=== PATIENT | female | born 1935 | race Caucasian/White ===

== ENCOUNTER 2016-12-24 01:15 | Inpatient (IN) | payer OTHER ==
[~2016-12-24] VITALS: Ht 170.2 cm; Wt 58.2 kg
--- NOTE | ~2016-12-24 | HC ---
[facility] [place] [address] CONSULTATION Name: BHAVESH PEÑA Room #: 205-P ADM IN M.R.#: [id number] Admission: 12/24/16 Attend Phys: Yessy Cabello MD Discharge: Date of : 35 Report #: [id number] THIS REPORT FOR: //name// CC: Chevy Cabello DATE OF CONSULTATION: 12/29/2016. ATTENDING PHYSICIAN: Dr. Yessy Cabello. REASON FOR CONSULTATION: Possible sepsis -- urinary tract infection. HISTORY OF PRESENT ILLNESS: The patient is an 81-year-old white woman initially hospitalized on 12/24/2016 with history of abdominal pain. She is found to have possible small-bowel obstruction secondary to adhesions. She undergoes surgical intervention by Dr. Chevy Rider 12/2015 consisting of release of small-bowel obstruction secondary to adhesions and segmental small bowel resection. The patient has history of colon cancer many years ago and there was no evidence of tumor in the abdominal cavity. PAST MEDICAL HISTORY: 1. Colon cancer, no evidence of metastasis in the past. 2. DVT lower extremities. 3. Previous hospitalization and phlebotomy in the past for possible hemochromatosis. 4. Hypertension. 5. Thyroid disease. 6. Leg fracture. 7. Coronary artery calcification by CT scan. 8. Anemia. DRUG ALLERGIES: None listed. MEDICATIONS: The patient is on treatment with cefoxitin 1 gram IV every 6 hours. She is also on Tylenol, metoprolol, haloperidol p.r.n., hydralazine p.r.n., ondansetron p.r.n. and is on intravenous fluids. SOCIAL HISTORY: See H and P. FAMILY HISTORY: See H and P. REVIEW OF SYSTEMS: The patient is rather weak and somnolent at present complaining of only abdominal pain as one might expect. [facility] [address] [place] [address] CONSULTATION Name: BHAVESH PEÑA Room #: 205-P [facility] IN [facility]#: [id number] Admission: 12/24/16 Attend Phys: Yessy Cabello MD Discharge: Date of : 35 Report #: [id number] PHYSICAL EXAMINATION: GENERAL: A well-developed woman, not toxic looking. VITAL SIGNS: Temperature maximum 99.9, pulse 97, respirations 14, blood pressure 124/74, O2 saturation 100% on room air. HEENMT: Head normocephalic, atraumatic. Pupils reactive. Mouth: Moist mucous membrane. No thrush. NECK: Supple, no thyromegaly. LUNGS: Decreased breath sounds at bases, few crackles, right base. HEART: S1, S2. No gallop. ABDOMEN: Revealed a Prevena dressing in place. This is not removed. Abdomen is tender as one might expect. Bowel sounds decreased. GENITALIA AND RECTAL: Deferred. There is a Vega catheter in place. EXTREMITIES: No clubbing, cyanosis. There is a left arm PICC. NEUROLOGIC: Grossly within normal limits. LABORATORY DATA: Sodium 142, potassium 3.7, BUN 24, creatinine 1, glucose 116, albumin 2.3 g/dL. WBC 11.4, hemoglobin 8.8, platelets 183,000. White blood cell count revealed 84% segmented neutrophils. Urinalysis revealed bacteriuria and some microscopic pyuria. The ABGs yesterday revealed pH 7.36, pCO2 of 36, pO2 102, bicarbonate low at 20.5. Lactate normal. The set of gases is unknown FIO2. MICROBIOLOGY DATA: Urine culture revealed greater than 100,000 colonies of Citrobacter freundii and Klebsiella oxytoca, organisms sensitive to most antibiotics. Radiology evaluation, a CT scan of chest PE protocol yesterday revealed cardiomegaly, coronary artery calcification, no filling defects of the pulmonary arteries to suggest emboli. 2.1 cm nodule right thyroid lobe. Bibasilar atelectasis. ASSESSMENT: 1. Status post exploratory laparotomy, lysis of adhesions, segmental small bowel resection by Dr. Chevy Rider 11/27/2016. 2. History of colon cancer. 3. Possible hemochromatosis. 4. Anemia. 5. Bacteriuria versus urinary tract infection. 6. Doubt sepsis. 7. History thrombectomy, remote. 8. Coronary artery disease, coronary artery calcifications, cardiomegaly and atrial fibrillation. SUGGESTIONS: At present, the patient obviously not septic and doing quite well. I recommend few days of meropenem 500 mg IV every 8 hours and discontinue cefoxitin. [address] [address] CONSULTATION Name: BHAVESH PEÑA Mikal Room #: 205-P ADM IN M.R.#: [id number] Admission: 12/24/16 Attend Phys: Yessy Cabello MD Discharge: Date of : 35 Report #: [id number] Cabello, thank you for requesting my suggestions in the care of your patient. <ELECTRONICALLY SIGNED> By: Cy Beal MD 12/30/16 1120 0921 1215 Cy Beal MD /nt
--- NOTE | ~2016-12-24 | H ---
[facility] [place] [address] HISTORY AND PHYSICAL Name: BHAVESH PEÑA Room #: 243-P ADM IN M.R.#: [id number] Admission: 12/24/16 Attend Phys: Yessy Cabello MD Discharge: Date of : 35 Report #: [id number] THIS REPORT FOR: //name// CC: Ricky Becker ATTENDING PHYSICIAN: Michael Becker M.D. PRIMARY CARE PHYSICIAN: Dr. Clint Sol. CHIEF COMPLAINT: Abdominal pain. HISTORY OF PRESENT ILLNESS: The patient is an 81-year-old female who ate breakfast this morning and shortly after eating, she developed sudden onset abdominal pain. The pain is mostly in her mid abdomen. It did not radiate. She said the pain was sharp and stabbing. The pain persisted throughout the day, so she ended up going to the ER at [facility]. She did have associated nausea and vomiting. She has not had any diarrhea. Her last bowel movement was 2 days ago. She has not been passing any flatus. She does have a history of colon cancer which was treated over 10 years ago with a colon resection followed by chemo and radiation. She has been told that she is in remission. She thinks she had a colonoscopy within the last 5 years that was normal. After evaluation at [facility], she was found to have a small bowel obstruction. They did not have a surgeon available this weekend, so she was transferred to [facility] as a direct admission. She is not in any acute distress and states her pain and nausea are much better after pain medications. She has not required an NG. PAST MEDICAL HISTORY: Hyperthyroidism, colon cancer, hemochromatosis, hypertension and DVT. PAST SURGICAL HISTORY: Bowel restriction and left wrist repair. ALLERGIES: None. HOME MEDICATIONS: Megace 40 mg b.i.d., Eliquis 5 mg p.o. b.i.d., metoprolol 50 mg b.i.d., amlodipine 5 mg daily, aspirin 81 mg daily, Tylenol 325 mg q.4 hours p.r.n., Remeron 15 mg p.o. daily, lactobacillus 2 capsules daily, Senna 2 tabs p.o. daily constipation and methimazole 15 mg p.o. daily. SOCIAL HISTORY: The patient is a never smoker, denies any alcohol or drug use. She lives at home with her family including her son and spouse. FAMILY HISTORY: Her mother had heart problems who of old age at the age of 80 and her father at the age of 52 from a motor vehicle accident. REVIEW OF SYSTEMS: The patient does have a history of hemochromatosis in which she has occasional phlebotomy done for iron overload; she has not had this done [address] [address] HISTORY AND PHYSICAL Name: BHAVESH PEÑA Room #: 243-P [facility] IN M.R.#: [id number] Admission: 12/24/16 Attend Phys: Yessy Cabello MD Discharge: Date of : 35 Report #: [id number] recently. All other 12-point review of systems was reviewed with the patient, and otherwise negative unless stated in the HPI. PHYSICAL EXAMINATION: GENERAL: The patient is an alert female in no acute distress. VITAL SIGNS: Temperature is 36.8, heart rate 91, respirations 18, blood pressure is 144/83 and oxygen 99% on room air. HEENT: PERRLA. Sclerae are nonicteric. Oral mucosa is pink and moist. NECK: Supple, no JVD noted. CARDIOVASCULAR: Normal S1 and S2. No murmurs, rubs or gallops. RESPIRATORY: Breath sounds are clear bilaterally, diminished in both bases. Breathing is nonlabored. ABDOMEN: Round and soft. It is somewhat distended. She is tender across the mid abdomen. Bowel sounds are rare. VASCULAR: No edema noted. Pedal pulses are 2+. NEUROLOGIC: The patient is alert and oriented x 3. Speech is clear. She is moving all extremities equally. No focal neuro deficits noted. LABORATORY AND DIAGNOSTIC DATA: WBC is 16.3, hemoglobin 9.0 and platelets 208. Sodium 143, potassium 4.1, BUN 34, creatinine 1.1 and glucose 164. LFTs are within normal limits. Lipase 641. Lactate is 1.5. UA showed 2+ ketones, 3+ blood, negative nitrite and trace leukocyte esterase, few wbc's. CT of the abdomen showed dilated small bowel loops consistent with a small bowel obstruction. There is suggestion of intraluminal mass within the small bowel loop. ASSESSMENT AND PLAN: 1. Small bowel obstruction. This may be due to an intraluminal mass causing obstruction. She does have a history of colon cancer, this may be recurrent carcinoma; we will consult surgery. For now, keep her n.p.o., continue IV fluids, antiemetics and pain control. 2. Hyperthyroidism, continue home medications. 3. Hypertension. Blood pressure is stable, continue home medications. 4. History of a deep venous thrombosis. Continue with Eliquis. If surgery is indicated, this will need to be held. 5. Mild pancreatitis. Etiology for this is not clear. We will keep her n.p.o. due to small bowel obstruction and then repeat lipase in the morning after intravenous fluids. 6. Deep venous thrombosis prophylaxis, place SCDs. [address] [address] HISTORY AND PHYSICAL Name: BHAVESH PEÑA Room #: [facility] IN [facility].#: [id number] Admission: 12/24/16 Attend Phys: Yessy Cabello MD Discharge: Date of : 35 Report #: [id number] We will continue to follow the patient closely throughout the hospitalization and make changes based on clinical status. <ELECTRONICALLY SIGNED> By: GARTH Sims 12/29/16 0109 0703 0934 GARTH Sims /nt
--- NOTE | ~2016-12-24 | EKG ---
[address] [address] ELECTROCARDIOGRAM REPORT Name: BHAVESH PEÑA Room #: 444-P ADM IN .R.#: [id number] Admission: 12/24/16 Attend Phys: Yessy Cabello MD Discharge: Date of : 35 Report #: [id number] THIS REPORT FOR: //name// [facility] Test Date: 2016-12-28 Test Time: 02:06:47 Pat Name: BHAVESH PEÑA Department: Room: 444 Gender: F Science Consultant: . : 1935 Requested By: Regina Mota Order Number: [id number] MD: Willian Beal Measurements Intervals [place] Rate: 131 P: [place]: QRS: 39 QRSD: 78 T: 223 QT: 259 QTc: 383 Interpretive Statements Atrial fibrillation Artifact in lead(s) III,aVL,aVF,V1,V2,V5,V6 and baseline wander in lead(s) V3 Compared to ECG 12/25/2016 07:56:29 Electronically Signed On 12-28-2016 9:44:17 CDT by Willian Beal [email or web address] <ELECTRONICALLY SIGNED> By: Willian Beal MD 12/28/16 0944 0206 Willian Beal MD /EPI
--- NOTE | ~2016-12-24 | HC ---
[facility] [address] [place] [address] CONSULTATION Name: BHAVESH PEÑA Mikal Room #: 205-P [facility] IN ..#: [id number] Admission: 12/24/16 Attend Phys: Yessy Cabello MD Discharge: 01/04/17 Date of : 35 Report #: [id number] THIS REPORT FOR: //name// CC: Ricky Cabello HISTORY OF PRESENT ILLNESS: The patient is an 81-year-old white female originally admitted to [facility] with abdominal pain. She was transferred to [facility]. Diagnosis was small bowel obstruction. She was noted to have hypertension and mild pancreatitis. She ended up undergoing exploratory laparotomy with small bowel resections and lysis of adhesions. She was noted to have problems with confusion and has been diagnosed with an encephalopathy. She has a polymicrobial urinary tract infection with rapid atrial fibrillation and has had ileus. We are seeing her in rehabilitation medicine consultation. PAST MEDICAL HISTORY: Includes hyperthyroidism, colon cancer with prior resection, history of left wrist repair, hypertension, DVT, hemochromatosis. PAST SURGICAL HISTORY: Includes bowel resection, left wrist repair after a fracture, right femoral thrombectomy. ALLERGIES: No known drug allergies. MEDICATIONS: Please see the full medication listing. SOCIAL HISTORY: She lives in a house with her spouse. Does not utilize any gait aids. There is one step in. [place], [place]. There are children that are involved. FAMILY HISTORY: Mother at age 80 apparently of "old age". REVIEW OF SYSTEMS: No current complaints of chest pain, shortness of breath or abdominal discomfort. No focal extremity pain complaints. Did not complain of any headache. PHYSICAL EXAMINATION: GENERAL: She is an 81-year-old white female in no obvious distress. VITAL SIGNS: Last recorded temperature is 98.3, pulse 86, respirations 20, blood pressure 150/98. GENERAL: The patient is alert. She is pleasant. HEENT: Appeared to be benign. NEUROLOGIC: Cranial nerves are grossly intact. Facies are symmetric. She was noted to have some latency to her responses. She knew self, and place and date of , but does not know the year and the month. She has functional range of motion of both upper extremities with strength grade 4-/5. DTRs are trace to 1. [address] [address] CONSULTATION Name: BHAVESH PEÑA Room #: [address] [place] [address] [place] ..#: [id number] Admission: 12/24/16 Attend Phys: Yessy Cabello MD Discharge: 01/04/17 Date of : 35 Report #: [id number] Midline abdominal incision is dressed. Lower extremities, no focal calf swelling, functional range of motion strength is a grade 4 to 4-/5. DTRs are trace to 1. She has been sit to stand contact guard assistance and has ambulated 40 feet contact guard with a front-wheeled walker. ASSESSMENT: An 81-year-old white female with the following problem list: 1. Encephalopathy. Neurology is seeing her. 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 There is a question of some baseline dementia per Neurology. 2. Small-bowel obstruction, status post small bowel resection, lysis of adhesions, 12/27/2016. 3. Polymicrobial urinary tract infection with sepsis. 4. Rapid atrial fibrillation, now sinus rhythm. 5. Hyperthyroidism. 6. Hemochromatosis. PLAN: Therapies are continuing to work with her. We will need to see how she progresses during her therapies and see what her current functional status is. She may warrant a short acute in-hospital inpatient rehabilitation stay. We will follow along with you. Occupational therapy orders will be added. Thank you very much. <ELECTRONICALLY SIGNED> By: Mikael Malik MD 01/06/17 1551 1047 1302 Mikael Malik MD /nt
--- NOTE | ~2016-12-24 | O ---
[facility] [place] [address] OPERATIVE REPORT Name: BHAVESH PEÑA Room #: 205-P ADM IN M.R.#: [id number] Admission: 12/24/16 Attend Phys: Yessy Cabello MD Discharge: Date of : 35 Report #: [id number] THIS REPORT FOR: //name// CC: Ricky Cabello DATE OF SERVICE: 12/27/2016 PREOPERATIVE DIAGNOSIS: Partial small-bowel obstruction and possible neoplasm of the small bowel. POSTOPERATIVE DIAGNOSIS: Small-bowel obstruction secondary to adhesions. No evidence of neoplasm or small bowel. PROCEDURE: Diagnostic laparoscopy with conversion to open exploratory laparotomy. Lysis of dense adhesions for 59 minutes, small bowel resection and entero-entero anastomosis. Application of Prevena negative wound suction device. SURGEON: Chevy Rider MD PLUG MAKER: Jennie Mac APRN. INDICATIONS: An 81-year-old lady who presented with 48 hours of gastrointestinal cramping, abdominal pain with distention and nausea with a CT scan suggesting a small bowel neoplasm and small-bowel obstruction. OPERATIVE PROCEDURE: The patient and her family had thorough discussion of the procedure, benefits and risks. They gave informed consent to proceed. She was given preoperative IV antibiotics. She was brought to the operating room suite and had satisfactory induction of general endotracheal anesthesia. The patient's entire abdomen was painted and prepped in usual sterile procedure with DuraPrep solution. After draping was completed, an appropriate timeout was then performed. Initially, open cutdown at the infraumbilical position was performed. The 5 mm Milady trocar was introduced under direct vision. Pneumoperitoneum was established. The entire abdomen was surveyed demonstrating some dilated loops of small bowel. There were also dense adhesions adjacent to the umbilical port site and dense adhesions with small bowel attached to the anterior abdominal wall throughout the lower abdomen from previous surgery. The intraoperative decision was made to convert to open exploratory laparotomy, which was performed with a midline incision. Dense adhesions were present to the lateral aspect of the midline exploration. These were taken down with sharp dissection and electrocautery as well as cold scissors. Dense adhesions were lysed for approximately 59 minutes. The small bowel densely adherent and the left upper quadrant to the colon was slowly resected free with lysis. There was [address] [address] OPERATIVE REPORT Name: BHAVESH PEÑA Room #: 205-P [facility] IN M.R.#: [id number] Admission: 12/24/16 Attend Phys: Yessy Cabello MD Discharge: Date of : 35 Report #: [id number] an area of 2-3 cm with thinning of the serosal surface which required a small bowel resection. A second area with just some superficial roughening of the serosal surface was approximated with interrupted 3-0 PDS Lembert sutures #3. The segment in the mid portion of the jejunum had transection of the distal and proximal segment utilizing the CHASE 60 stapling device. The mesentery was controlled with the LigaSure energy device. The proximal and distal end of the small bowel was then approximated with interrupted 3-0 PDS. The enterotomy was performed for each segment and the CHASE stapling device was utilized to perform the anastomosis. The enterotomies were controlled with Allis clamps. The TA 60 device was utilized to control and close the 2 enterotomy sites. A 3-0 PDS was then placed in the crotch x 2 to alleviate tension from the staple line. The staple line of enterotomy and the anastomosis was then approximated and oversewn with a running 3-0 PDS Lembert type sutures. The mesenteric rent was then approximated with running 2-0 PDS suture. Copious irrigation with saline was performed. Inspection of the bowel from the ligament of Treitz to the terminal ileum was performed x 3, the entire small bowel was palpated throughout its entire length and no evidence of intraluminal neoplasm was encountered or found. The appendix was in an inferior cecal position and appeared to be within normal limits. The uterus, tubes, and ovaries were within normal limits. The rectum and sigmoid colon were unremarkable. Palpation of the entire colon was performed throughout its length and no intraluminal mass or tumor could be palpated. The liver was unremarkable. An NG tube was well positioned in the midportion of the stomach. After final inspection of the small bowel and large bowel and running the small bowel x 3 with regards its length, evacuation of all irrigating contents was accomplished. Interceed 4 x 8 sheaths were placed over the small bowel and the omentum. The fascia was approximated with 1 suture of looped #1 PDS from the inferior aspect of the incision. A second suture from the superior aspect was run, these were approximated in the mid portion of the wound, each was ligated and tied individually. The tails were then ligated and tied together. Irrigation of the subcutaneous tissue was performed. Skin margins were stapled. All sponge and needle counts were correct prior to closure of the wound. Estimated blood loss was less than 25 mL. The Prevena negative pressure wound device was then placed over the wound. The patient tolerated the procedure well and she returned to recovery room in stable and satisfactory condition. <ELECTRONICALLY SIGNED> By: Chevy iRder MD, FACS 01/03/17 0858 1826 34 Chevy Rider MD, FACS /nt
--- NOTE | ~2016-12-24 | EKG ---
[address] [address] ELECTROCARDIOGRAM REPORT Name: MARIANABHAVESH Room #: 444- ADM IN .R.#: [id number] Admission: 12/24/16 Attend Phys: Yessy Cabello MD Discharge: Date of : 35 Report #: [id number] THIS REPORT FOR: //name// [facility] Test Date: 2016-12-25 Test Time: 07:56:29 Pat Name: BHAVESH PEÑA Department: Room: 444 Gender: F Online Marketing Strategist: HANG : 1935 Requested By: Cuba Hampton Order Number: [id number] MD: Willian Beal Measurements Intervals [place] Rate: 90 P: [place]: QRS: 40 QRSD: 86 T: 13 QT: 388 QTc: 475 Interpretive Statements Atrial fibrillation No previous ECG available for comparison Electronically Signed On 12-26-2016 8:51:32 CDT by Willian Beal [email or web address] <ELECTRONICALLY SIGNED> By: Willian Beal MD 12/26/16 0851 0756 0756 Willian Beal MD /VIKTORIYA
--- NOTE | ~2016-12-24 | H ---
[facility] [place] [address] HISTORY AND PHYSICAL Name: BHAVESH PEÑA Mikal Room #: 243-P ADM IN M.R.#: [id number] Admission: 12/24/16 Attend Phys: Yessy Cabello MD Discharge: Date of : 35 Report #: [id number] THIS REPORT FOR: //name// CC: Ricky Becker DATE OF SERVICE: 12/24/2016 ATTENDING PHYSICIAN: Dr. Becker. PRIMARY CARE PHYSICIAN: Clint Sol MD CHIEF COMPLAINT: Abdominal pain. HISTORY OF PRESENT ILLNESS: The patient is an 81-year-old female who was sent to [facility] as a direct admission from [facility] for abdominal pain. She said after breakfast, she started having fairly sudden onset of left upper and lower quadrant abdominal pain and radiated across her mid abdomen. It was sharp in nature. She did have some associated nausea and vomiting. She has not had any diarrhea. Today, she has not had any flatus. Her last bowel movement was 2 days ago. She does have a history of colon cancer and has had a previous colon resected over 10 years ago and her followup colonoscopies have been negative. She thinks her last colonoscopy was within the last 5 years. She denies seeing any blood in her stools prior to this. She is on Eliquis for prior DVT. She was diagnosed with a small bowel obstruction on CT at [place] and she has been sent here because they did not have any surgery consultants available over the weekend. She is currently resting comfortably and has not needed an NG tube. She has not had any further vomiting and her pain is improving with pain medications. PAST MEDICAL HISTORY: Hyperthyroidism, colon cancer, hemochromatosis, hypertension, DVT. PAST SURGICAL HISTORY: Bowel resection, left wrist repair after a fracture and right femoral thrombectomy. ALLERGIES: None. HOME MEDICATIONS: Megace 40 mg b.i.d., Eliquis 5 mg b.i.d., metoprolol 50 mg b.i.d., amlodipine 5 mg daily, aspirin 81 mg daily, Tylenol p.r.n., Remeron 15 mg daily, probiotic 2 capsules daily, senna 2 tabs daily p.r.n. and Tapazole 15 mg daily. SOCIAL HISTORY: The patient is a never smoker, denies any alcohol or drug use. She lives at home with her family including her son and spouse. [address] [address] HISTORY AND PHYSICAL Name: BHAVESH PEÑA Room #: 243-P [facility] IN [facility]#: [id number] Admission: 12/24/16 Attend Phys: Yessy Cabello MD Discharge: Date of : 35 Report #: [id number] FAMILY HISTORY: Her mother from old age at the age of 80. Her father from a motor vehicle accident at the age of 52. REVIEW OF SYSTEMS: Twelve-point review of systems was reviewed with the patient, otherwise negative unless stated in the HPI. PHYSICAL EXAMINATION: GENERAL: The patient is an alert female in no acute distress. VITAL SIGNS: Temperature is 36.8, heart rate 91, respirations 18, blood pressure is 144/83, oxygen 99% on room air. HEENT: PERRLA. Sclerae are nonicteric. Oral mucosa is pink and moist. NECK: Supple, no JVD noted. CARDIOVASCULAR: Normal S1, S2. No murmurs, rubs or gallops. RESPIRATORY: Breath sounds are clear bilaterally. No wheezing or rhonchi. Breathing is nonlabored. ABDOMEN: Soft and slightly distended with mid and epigastric pain with palpation. Bowel sounds are rare on the right side only. VASCULAR: No edema noted. Pedal pulses are 2+. NEUROLOGIC: The patient is alert and oriented times 3. Speech is clear. She is moving all extremities equally. No focal neuro deficits noted. LABORATORY DATA AND DIAGNOSTICS: WBC is 16.3, hemoglobin 9.0, platelets 208. Sodium 143, potassium 4.1, BUN 34, creatinine 1.1, glucose is 164. LFTs are within normal limits. Lipase is 641. Lactate is 1.5. UA showed 2+ ketones, 3+ blood, negative nitrite, trace leukocyte esterase, few wbc's. CT of abdomen done at [place] showed dilated small bowel loops consisting with small bowel obstruction. There was suggestion of an intraluminal mass within the small bowel loop. ASSESSMENT AND PLAN: 1. Small bowel obstruction. The patient has been admitted for further surgical evaluation. There is concern that there is a mass within the small bowel causing this obstruction. This is concerning due to her prior history of colon cancer that this may be a recurrence. Surgery is consulted. We will keep her n.p.o. We will hold off on placing an NG at this time because she is not actively vomiting or having any further acute pain. If she does require surgery, her Eliquis will need to be held. 2. Hypertension. We will add hydralazine while she is n.p.o. and unable to take her regular home meds. 3. History of deep venous thrombosis. She has been on Eliquis, which will need to be held if surgery is required. 4. History of colon cancer. She did have surgery and chemo and radiation over 10 years ago. 5. Hyperthyroidism, hold Tapazole n.p.o. 6. Mild pancreatitis. Etiology for this is not clear, may be related to her obstruction. We will keep her n.p.o., continue with fluids and repeat lipase [facility] [address] [place] [address] HISTORY AND PHYSICAL Name: BHAVESH PEÑA Room #: 243-P ADM IN [facility]#: [id number] Admission: 12/24/16 Attend Phys: Yessy Cabello MD Discharge: Date of : 35 Report #: [id number] level in the morning. 7. Deep venous thrombosis prophylaxis, place sequential compression devices. We will continue to follow the patient closely throughout the hospitalization and make changes based on clinical status. <ELECTRONICALLY SIGNED> By: GARTH Sims 12/29/16 0109 0110 0240 GARTH Sims /nt
--- NOTE | ~2016-12-24 | HC ---
[facility] [place] [address] CONSULTATION Name: BHAVESH PEÑA Room #: 205-P ADM IN M.R.#: [id number] Admission: 12/24/16 Attend Phys: Yessy Cabello MD Discharge: Date of : 35 Report #: [id number] THIS REPORT FOR: //name// CC: Ricky Cabello DATE OF SERVICE: 12/24/2016 HISTORY OF PRESENT ILLNESS: I have been asked to evaluate this 81-year-old lady who was [place] [facility]. The patient began to experience sudden onset of abdominal pain this a.m. after eating. The pain was persistent throughout the day and when she was at home. She went to the Emergency Department [place] [facility], she did have some associated nausea and vomiting. She denied diarrhea. She does have a history of colon cancer with colon resection approximately 10 years ago. She has not been passing flatus in recent 24 hours. She does not remember when her last colonoscopy was performed. She had a CT scan performed at [facility], which was suggested of a small-bowel obstruction and possible neoplasm or intraluminal mass obstructing the mid portion of the jejunum just superior to the urinary bladder. She was subsequently a direct transfer to [facility]. PAST MEDICAL HISTORY: Consistent with hypothyroidism, colon cancer, hemochromatosis, hypertension, and DVT. SURGICAL ILLNESSES: Bowel resection, left wrist repair as well as a right femoral thrombectomy performed at [facility] approximately 4 years ago. ALLERGIES: No known drug allergies. MEDICATIONS: Multiple, Megace, Eliquis 5 mg b.i.d., metoprolol, amlodipine, aspirin, Tylenol, Remeron, lactobacillus tabs, senna and methimazole. SOCIAL HISTORY: , lives with her . Denies alcohol or drug use. Sone lives with the family. FAMILY HISTORY: Maternal myocardial disease. Father at 52 from MVA. REVIEW OF SYSTEMS: Ten point review of systems, history of hemochromatosis, where she has periodic phlebotomy performed for iron overload. Remainder of her 10-point review of systems essentially noncontributory except for the recent onset in the last 48 to 72 hours of abdominal cramping pain consistent with partial [place] [address] CONSULTATION Name: BHAVESH PEÑA Room #: [facility] IN [facility].#: [id number] Admission: 12/24/16 Attend Phys: Yessy Cabello MD Discharge: Date of : 35 Report #: [id number] PHYSICAL EXAMINATION: GENERAL: Reveals an alert, thin elderly lady resting comfortably in bed, family at the bedside. She is afebrile. VITAL SIGNS: Within normal limits. HEENT: Pupils are equal, round, react to light. No scleral icterus. NECK: Supple, no adenopathy. LUNGS: Clear at the bases bilaterally. CARDIOVASCULAR: Regular rate and rhythm. ABDOMEN: Nondistended, mild tenderness in the lower abdomen, well-healed midline scar. No hernias are present. NEUROLOGIC: She is oriented x 3 with bilateral motor symmetry. RECTAL: Not performed. DATA: Review of the laboratory demonstrates all labs essentially within normal limits except for a hemoglobin of 9. Her lactic acid is 1.5. Urinalysis demonstrated some WBC and bacteria. CT scan demonstrates possible partial small-bowel obstruction with intraluminal mass or neoplasm. There is no evidence of recurrent adenocarcinoma of the colon at this time. Liver is unremarkable. DIAGNOSTIC IMPRESSION: Partial small-bowel obstruction in a patient who does not have an acute abdomen, but had her most recent dose of Eliquis of admission to the hospital. I would recommend n.p.o., IV fluids and repeat laboratory and x-rays in the a.m. We will follow her with you. The patient will ultimately require laparoscopic resection or open reduction and evaluation. I would also recommend a CEA level at this time. Thank you for allowing us to participate in her care. <ELECTRONICALLY SIGNED> By: Chevy Rider MD, FACS 01/04/17 1118 [id number] 0452 Chevy Rider MD, FACS /nt
--- NOTE | ~2016-12-24 | HC ---
[facility] [place] [address] CONSULTATION Name: BHAVESH PEÑA Room #: 444-P ADM IN M.R.#: [id number] Admission: 12/24/16 Attend Phys: Michael Becker MD Discharge: Date of : 35 Report #: [id number] THIS REPORT FOR: //name// CC: Ricky Becker DATE OF SERVICE: 12/24/2016 INDICATION: Preoperative evaluation. HISTORY OF PRESENT ILLNESS: This is a pleasant 81-year-old female who was transferred from [facility] with a small-bowel obstruction. The patient has a prior history of colon cancer with colectomy in the , with adjuvant radiation therapy and chemotherapy. For the past several days, she reported having abdominal pain and presented to the ER for an evaluation. A CT scan confirmed evidence for small-bowel obstruction and possible mass in the lower abdomen. The patient has a past medical history significant for hypertension, thyroid disease and possible DVT. She is presently on Eliquis twice a day. From a cardiac standpoint, she reports no episodes of angina, dyspnea or congestion. However, her ambulation has been limited by injuries to her lower extremities recently. She has not been active. PAST MEDICAL HISTORY: Hypertension, DVT?, thyroid disease and leg fractures. ALLERGIES: None. HOME MEDICATIONS: Include aspirin once a day, Eliquis 5 mg twice a day, Megace, methimazole 10 mg daily, metoprolol 50 mg twice a day, Norvasc 5 mg daily and Remeron. SOCIAL HISTORY: Negative for tobacco use. FAMILY HISTORY: Negative for premature CAD. REVIEW OF SYSTEMS: A full 10-point review of systems performed. Only the pertinent positives and negatives are described in the HPI. PHYSICAL EXAMINATION: VITAL SIGNS: Blood pressure is 139/80 and heart rate is 75 beats per minute. GENERAL APPEARANCE: This is an elderly appearing female in no acute respiratory distress. HEAD AND EYES: Normocephalic. Sclerae are anicteric. EARS, NOSE AND THROAT: Oral mucosa moist. NECK: Supple. LUNGS: Clear to auscultation. CARDIAC: Regular rate and rhythm, S1 and S2 positive. [facility] [address] [place] [address] CONSULTATION Name: BHAVESH PEÑA Room #: 444-P ADM IN ..#: [id number] Admission: 12/24/16 Attend Phys: Michael Becker MD Discharge: Date of : 35 Report #: [id number] ABDOMEN: Mildly tender. Bowel sounds hypoactive. EXTREMITIES: No major joint deformities, bilateral lower extremity edema. LABORATORY VALUES: White count is 7.2 and hemoglobin is 8.4. Sodium is 145 and creatinine is 0.9. ASSESSMENT AND PLAN: 1. Preoperative evaluation: The patient offers no complaints of angina or dyspnea. However, her ambulation has been limited lately, and we are unable to assess her functional capacity. Since the operation is being held for 3 days until the Eliquis has washed out, would consider a pharmacologic stress test. This would help risk stratify the patient. 2. Hypertension, continue with medications. 3. Prior history of deep vein thrombosis, Eliquis on hold. 4. Small-bowel obstruction, as per general surgery. 5. Edema, continue with conservative measures. Thank you for allowing me to participate in the care of your patient. <ELECTRONICALLY SIGNED> By: Cuba Hampton MD 12/25/16 [phone] 0146 Cuba Hampton MD /nt
--- NOTE | ~2016-12-24 | EEG ---
[facility] [place] [address] ELECTROENCEPHALOGRAM Name: BHAVESH PEÑA Room #: 205-P [facility] IN M.R.#: [id number] Admission: 12/24/16 Attend Phys: Yessy Cabello MD Discharge: Date of : 35 Report #: [id number] THIS REPORT FOR: //name// CC: Ricky Cabello DATE OF SERVICE: 12/30/2016 This patient is being evaluated for altered mental status. EEG was done by placing the electrodes by standard 10-20 system of electrode placement. Both referential and sequential montages were used for recording. Background activity in this patient's EEG does go up to about 9-10 Hz, but it is intermixed with theta and delta range slowing on both sides, even when the patient appeared to be awake. The patient does go to sleep that is associated with bilateral slowing, vertex sharp waves and sleep spindles. Photic stimulation is unremarkable. IMPRESSION: This patient's EEG is intermixed with theta range slowing on both sides. That is a nonspecific abnormality, which can occur with encephalopathy, effect of psychotropic medication, dementia, etc. Clinical correlation is recommended. Thank you very much for this referral. <ELECTRONICALLY SIGNED> By: Lionel Garza MD 12/31/16 1227 17 31 Lionel Garza MD /nt
--- NOTE | ~2016-12-24 | HC ---
[facility] [place] [address] CONSULTATION Name: BHAVESH PEÑA Mikal Room #: 205-P ADM IN M.R.#: [id number] Admission: 12/24/16 Attend Phys: Yessy Cabello MD Discharge: Date of : 35 Report #: [id number] THIS REPORT FOR: //name// CC: Ricky Cabello HISTORY OF PRESENT ILLNESS: This patient is known to me for a penitentiary followup of hereditary hemochromatosis. She has been admitted emergently and transferred from [facility] for small-bowel obstruction and is to undergo surgery. We last saw her on 11/11/2016 when she underwent a phlebotomy, which she is taking place every 6 months. This has kept her ferritin levels in the low normal range. At the time of that procedure, her hematocrit was 40%. She has a prior history of previous colon cancer and has not had any evidence of recurrence or metastasis. Her CEA titer LDH were both normal in October and she has declined a followup colonoscopy. In 02/2016, she was found to have a lower extremity DVT in spite of Coumadin therapy and was placed on Eliquis. At that time, she was also found to have weight loss and placed on Tapazole for hyperthyroidism. She reports that prior to her hospitalization, she had done well following this last phlebotomy. She subsequently developed issues with nausea, vomiting, abdominal pain and was seen at [facility] prior to her transfer. PAST MEDICAL HISTORY: Also significant for medically managed hypertension. ALLERGIES: None known. MEDICATIONS: As listed on the MFR. SOCIAL HISTORY: She is a nonsmoker, nondrinker. FAMILY HISTORY: Noncontributory. REVIEW OF SYSTEMS: As noted in the HPI with a full 10-point review performed. PHYSICAL EXAMINATION: GENERAL: Shows an alert white female. She has IV in place. HEENT: Normocephalic. NECK: Supple. Mouth is clear. LUNGS: Chest is clear. CARDIOVASCULAR: Normal S1, S2. ABDOMEN: Shows no palpable masses. [facility] [address] [place] [address] CONSULTATION Name: BHAVESH PEÑA Room #: [address] [place] [address] [place] ..#: [id number] Admission: 12/24/16 Attend Phys: Yessy Cabello MD Discharge: Date of : 35 Report #: [id number] EXTREMITIES: No clubbing, cyanosis or edema. LABORATORY DATA: Shows some mild anemia. Earlier scans had suggested a mass in the small intestine causing obstruction. ASSESSMENT: Small-bowel obstruction with questionable mass. PLAN: She is pending surgery and we will await the results. It is unlikely this is related to her remote colon cancer which dates to 1996. Thanks for notifying me for hospitalization and allowing me to participate in her care. <ELECTRONICALLY SIGNED> By: Shira Sosa MD 01/03/17 0906 1445 27 MD freddy Cuevas
--- NOTE | ~2016-12-24 | 2DMMODE ---
[place] [address] [facility] [place] [address] 2 D/M-MODE ECHOCARDIOGRAM Name: BHAVESH PEÑA Room #: 444-P [facility] IN [facility]#: [id number] Admission: 12/24/16 Attend Phys: Yessy Caebllo MD Discharge: Date of : 35 Date of Service: 12/26/16 1412 Report #: [id number] THIS REPORT FOR: //name// APPROVED REPORT Study performed: 12/26/2016 13:07:43 EXAM: Comprehensive 2D, Doppler, and color-flow Echocardiogram Patient Location: In-Patient Room #: 444 Blood Pressure: 135/64 mmHg HR: 95 bpm Rhythm: Atrial Fibrillation Other Information Study Quality: GoodAdequate Indications Pre-Op 2D Dimensions RVDd: 36.69 mm LVEF(%): 61.13 (>50%) IVSd: 10.00 (7-11mm) LVOT Diam: 21.08 (18-24mm) LVDd: 37.38 mm PWd: 9.88 (7-11mm) Ascending Ao: 29.72 (22-36mm) LVDs: 25.37 (25-40mm) Aortic Root: 34.44 mm Aguilera's LVEF: 61.13 % Volumes Left Atrial Volume (Systole) Single Plane 4CH: 54.33 mL Single Plane 2CH: 48.28 mL Aortic Valve AoV Peak Pedro.: 1.16 m/s AO Peak Gr.: 5.40 mmHg LVOT Max P.89 mmHg LVOT Max V: 0.69 m/s MATHIEU Vmax: 2.07 cm2 Mitral Valve MV Decel. Time: 136.06 ms MV E Max Pedro.: 1.17 m/s [facility] [place] [address] [place] [address] 2 D/M-MODE ECHOCARDIOGRAM Name: BHAVESH PEÑA Room #: 444[facility].#: [id number] Admission: 12/24/16 Attend Phys: Yessy Cabello MD Discharge: Date of : 35 Date of Service: 12/26/16 1412 Report #: [id number] IVRT: 59.98 ms Pulmonary Valve PV Peak Pedro.: 0.84 m/s PV Peak Gr.: 2.85 mmHg Tricuspid Valve TR Peak Pedro.: 3.02 m/s RAP Estimate: 5.00 mmHg TR Peak Gr.: 36.64 mmHg RVSP: 42.00 mmHg Left Ventricle The left ventricle is normal size. There is normal LV segmental wall motion. There is normal left ventricular wall thickness. The left ventricular systolic function is normal. The left ventricular ejection fraction is within the normal range. LVEF is 60%. This study is not technically sufficient to allow evaluation of the LV diastolic function due to atrial fibrillation. Right Ventricle The right ventricle is normal size. The right ventricular systolic function is normal. Atria Left atrium is mildly dilated. Right atrium is mildly dilated. Aortic Valve The Aortic valve is sclerotic. Trace aortic regurgitation. There is no aortic valvular stenosis. Mitral Valve The mitral valve is mildly thickened. Mild mitral annular calcification. Mild mitral regurgitation. No evidence of mitral valve stenosis. Tricuspid Valve The tricuspid valve is normal in structure. There is mild to moderate tricuspid regurgitation. The right atrial pressure is estimated at 5 mmHg. There is mild pulmonary hypertension with an estimated PAP of 42 mmHg. Pulmonic Valve The pulmonary valve is normal in structure. Trace pulmonic regurgitation. Great Vessels The aortic root is normal in size. The ascending aorta is normal in [facility] [address] [place] [address] 2 D/M-MODE ECHOCARDIOGRAM Name: BHAVESH PEÑA Room #: 444-P [facility] IN [facility].#: [id number] Admission: 12/24/16 Attend Phys: Yessy Cabello MD Discharge: Date of : 35 Date of Service: 12/26/16 1412 Report #: [id number] size. IVC is normal in size and collapses >50% with inspiration. Pericardium There is no pericardial effusion. <Conclusion> The left ventricle is normal size. The left ventricular systolic function is normal. The right ventricle is normal size. Left atrium is mildly dilated. Right atrium is mildly dilated. There is no aortic valvular stenosis. The Aortic valve is sclerotic. The mitral valve is mildly thickened. Mild mitral annular calcification. Mild mitral regurgitation. There is mild to moderate tricuspid regurgitation. The right atrial pressure is estimated at 5 mmHg. There is mild pulmonary hypertension with an estimated PAP of 42 mmHg. <ELECTRONICALLY SIGNED> By: Cuba Hampton MD 12/26/16 141 11 11 Cuba Hampton MD /INF
--- NOTE | ~2016-12-24 | S ---
[facility] [place] [address] SURGICAL PATH RPT PROCEDURE Name: BHAVESH PEÑA Room #: 205-P ADM IN M.R.#: [id number] Admission: 12/24/16 Date of : 35 Discharge: Report #: [id number] Path Case #: [id number] PATHOLOGY REPORT COLLECTION DATE: 12/27/2016 RECEIVED DATE: 12/28/2016 SUBMITTING PHYS: Dr. Chevy Rider OTHER PHYS: Dr. Yessy Cabello SPECIMEN(S) RECEIVED: A.Small bowel B.Anastomosis * * * * * * * * * * * * FINAL DIAGNOSIS: A. Small bowel - suture tinajero proximal, resection: - Marked congestion of vessels along with thinning of bowel wall associated with perforation. - Negative for dysplasia or malignancy. - Proximal and distal margins of resection viable and unremarkable. B. Small bowel, anastomosis: - Viable and unremarkable small bowel mucosa. PATHOLOGIST: Keturah Do M.D. REPORT ELECTRONICALLY SIGNED BY: Keturah Do M.D. DATE/TIME: 12/30/2016 17:22 * * * * * * * * * * * * GROSS PATHOLOGY: A. The specimen is received in formalin, labeled "[place], small bowel-suture tinajero proximal", and consists of a tortuous angulated segment of small bowel with attached mesenteric soft tissue weighing 26 g and measuring 7 cm in length. It varies in diameter from about 2 to 3 cm. Attached at one end is a suture indicating the proximal aspect of the specimen. Serosa near the midportion of the bowel segment has some fibrous adhesions associated with a region of serosal disruption measuring about 4 cm in length and 2.5 cm in circumference which is located 3 cm from the proximal and 1.5 cm from the distal margin. This area of disruption is marked with dye. The bowel wall at the region of serosal disruption is tortuous and has a angulated appearance and measures 1 mm or less in thickness. The area of serosal disruption is located 4 cm from the mesenteric resection margin. The bowel segment is opened to reveal prominent mucosal folds without polyps, nodules, masses or areas of ulceration. Attached mesenteric soft tissues are without nodules or masses or prominent lymph nodes. A submucosal hemorrhagic area adjacent to the [facility] [address] [place] [address] SURGICAL PATH RPT PROCEDURE Name: KATIUSKABHAVESH Room #: 205-P [facility] IN [facility].#: [id number] Admission: 12/24/16 Date of : 35 Discharge: Report #: [id number] Path Case #: [id number] region of serosal disruption measures about 1.5 1 cm. Materials Scientist sections are submitted as follows: En face sections of proximal resection margin A1, en face sections of distal resection margin A2, en face section of mesenteric resection margin A3, longitudinal section including area of serosal disruption of bowel wall A4, bowel wall and submucosal hemorrhagic area A5 and mesenteric soft tissue A6. B. The specimen is received in formalin, labeled "[place], anastomosis", and consists of a opened elongate portion of bowel wall measuring about 5.5 1.5 0.5 cm. Near the midportion of the bowel segment is a transverse intact anastomotic site measuring about a centimeter in length containing several james. The anastomotic site is located about 2.5 cm from one end of the bowel segment. Adjacent to the anastomotic site is a attached suture. Mucosa and wall away from the anastomotic site are without significant abnormalities. Materials Scientist sections of bowel wall including anastomotic site(james removed) are designated B1 and other sections of bowel wall away from anastomotic site B2. (CW; 12/29/2016) CLINICAL HISTORY: Pre-op diagnosis: Small bowel mass INITIAL CPT CODE(S): A; 83445 B; 38422 Professional services performed by [email or web address] at [facility] [address], [place] [address] Technical services performed by [email or web address] at [address] [place] [address], [address], [place] [address]. [employer] [address] [place] [address] PHONE: [phone] DIRECTOR: Nate Lemus M.D. * * * END OF REPORT * * *
[2016-12-24 01:35] VITALS: BP 144/83
[2016-12-24] MEDS ORDERED: TYLENOL325 MG PO (02:24)
[2016-12-24] MEDS ORDERED: HYDROCORTISONE30 G9 RECTAL (02:25)
[2016-12-24] MEDS ORDERED: ST. JOSEPH ASPI81 MG PO (02:27)
[2016-12-24] MEDS ORDERED: ELIQUIS5 MG PO (02:27)
[2016-12-24] MEDS ORDERED: MEGACE40 MG/ML PO (02:28)
[2016-12-24] MEDS ORDERED: LOPRESSOR50 PO (02:29)
[2016-12-24] MEDS ORDERED: METHIMAZOLE10 MG PO (02:29)
[2016-12-24] MEDS ORDERED: NORVASC5 MG PO (02:30)
[2016-12-24] MEDS ORDERED: REMERON15 MG PO (02:31)
[2016-12-24] MEDS ORDERED: PROBIOTIC1 EAC1 PO (02:31)
[2016-12-24] MEDS ORDERED: SENNA-S TABLET1 EACH PO (02:32)
[2016-12-24 08:00] VITALS: BP 124/50
[2016-12-24 12:48] LABS: HEMOGLOBIN 8.4 gm/dL (12.0-15.0); MCH 28.5 pg (26.0-34.0); MCHC 33.5 g/dL (28.0-37.0); RBC 2.94 mil/uL (4.20-5.00); RDW 15.6 % (10.5-14.5); WBC 7.2 thou/uL (4.0-11.0)
[2016-12-24 13:02] LABS: INR 1.1; PROTIME 11.3 Seconds (9.3-11.4)
[2016-12-24 13:03] LABS: CALCIUM 8.4 mg/dL (8.5-10.1); CREATININE 0.9 mg/dL (0.6-1.0); POTASSIUM 3.9 mmol/L (3.5-5.1)
[2016-12-24 15:45] VITALS: BP 139/61
[2016-12-24 20:10] VITALS: BP 140/62
[2016-12-25 02:58] LABS: HEMATOCRIT 22.2 % (37.0-47.0); HEMOGLOBIN 7.3 gm/dL (12.0-15.0); MCH 28.2 pg (26.0-34.0); MCV 85.4 fL (80.0-100.0); RBC 2.6 mil/uL (4.20-5.00); RDW 15.2 % (10.5-14.5); WBC 4.9 thou/uL (4.0-11.0)
[2016-12-25 03:14] LABS: ALBUMIN 2.7 g/dL (3.4-5.0); CALCIUM 8.1 mg/dL (8.5-10.1); CREATININE 0.8 mg/dL (0.6-1.0); PHOSPHORUS 2.4 mg/dL (2.5-4.9); POTASSIUM 3.6 mmol/L (3.5-5.1); TOTAL BILIRUBIN 0.4 mg/dL (<0.1-1.0); TOTAL PROTEIN 5.6 g/dL (6.4-8.2)
[2016-12-25 03:40] VITALS: BP 124/60
[2016-12-25 04:41] LABS: URINE BILIRUBIN NEGATIVE (Negative); URINE BLOOD 3+ (Negative); URINE COLOR YELLOW; URINE GLUCOSE-RANDOM* NEGATIVE (Negative); URINE KETONES NEGATIVE (Negative); URINE LEUKOCYTES-REFLEX TRACE (Negative); URINE PROTEIN (DIPSTICK) NEGATIVE (Negative); URINE SPECIFIC GRAVITY 1.015 (1.003-1.035); URINE UROBILINOGEN 0.2 E.U./dl (0.2-1.0)
[2016-12-25 05:29] LABS: CASTS None Seen /LPF (None Seen); SQUAMOUS 0-3 Few /LPF (0-3)
[2016-12-25 05:30] LABS: CRYSTALS None Seen /LPF (None Seen); URINE RBC 0-2 Rare /HPF (0-2); URINE WBC-REFLEX 0-5 Rare /HPF (0-5)
[2016-12-25 08:06] VITALS: BP 143/64
[2016-12-25 10:14] LABS: HEMATOCRIT 24.4 % (37.0-47.0)
[2016-12-25 16:05] VITALS: BP 131/57
[2016-12-25 20:10] VITALS: BP 134/61
[2016-12-26] VITALS (7 sets, daily range): BP systolic 133–150; BP diastolic 58–76
[2016-12-26 05:47] LABS: WBC 4.8 thou/uL (4.0-11.0)
[2016-12-26 05:52] LABS: HEMATOCRIT 20.5 % (37.0-47.0); MCH 28.6 pg (26.0-34.0); MCHC 33.7 g/dL (28.0-37.0); RBC 2.42 mil/uL (4.20-5.00); RDW 15.2 % (10.5-14.5)
[2016-12-26 05:54] LABS: HEMOGLOBIN 6.9 gm/dL (12.0-15.0)
[2016-12-26 05:58] LABS: ALBUMIN 2.8 g/dL (3.4-5.0); CALCIUM 8.2 mg/dL (8.5-10.1); CREATININE 0.7 mg/dL (0.6-1.0); POTASSIUM 3.3 mmol/L (3.5-5.1); TOTAL BILIRUBIN 0.2 mg/dL (<0.1-1.0); TOTAL PROTEIN 5.9 g/dL (6.4-8.2)
[2016-12-27] VITALS (9 sets, daily range): BP systolic 144–175; BP diastolic 56–95
[2016-12-27 07:19] LABS: HEMATOCRIT 34.8 % (37.0-47.0); HEMOGLOBIN 11.4 gm/dL (12.0-15.0); MCH 28.4 pg (26.0-34.0); MCHC 32.7 g/dL (28.0-37.0); MCV 86.8 fL (80.0-100.0); RBC 4.01 mil/uL (4.20-5.00); RDW 14.9 % (10.5-14.5); WBC 6.3 thou/uL (4.0-11.0)
[2016-12-27 07:36] LABS: CALCIUM 8.9 mg/dL (8.5-10.1); CREATININE 0.8 mg/dL (0.6-1.0); POTASSIUM 3.1 mmol/L (3.5-5.1)
[2016-12-28] VITALS (55 sets, daily range): BP systolic 112–188; BP diastolic 55–115
[2016-12-28 06:05] LABS: HEMATOCRIT 33.3 % (37.0-47.0); HEMOGLOBIN 10.8 gm/dL (12.0-15.0); MCH 28.4 pg (26.0-34.0); MCHC 32.5 g/dL (28.0-37.0); MCV 87.5 fL (80.0-100.0); RBC 3.81 mil/uL (4.20-5.00); RDW 15.7 % (10.5-14.5)
[2016-12-28 06:16] LABS: CALCIUM 8.7 mg/dL (8.5-10.1); POTASSIUM 4.5 mmol/L (3.5-5.1)
[2016-12-28 09:39] LABS: ABG SAMPLE TYPE ARTERIAL; BE(vivo) -4.3 mmol/L (-2 to +3); HCO3 20.5 mmol/L (22.0-26.0); LACTATE 1.02 mmol/L (0.5-2.0); O2(CT) 16.2 mL/dL (15.0-23.0); O2Hb 96.6 % (92.0-98.0); PCO2 36.3 mmHg (35.0-45.0); PO2 102.2 mmHg (80.0-100.0); pH 7.369 (7.360-7.450); sO2 97.6 % (92.0-98.0); tCO2 21.6 mmol/L (24.0-30.0)
[2016-12-28 09:40] LABS: ABG COMMENT NO COMPLICATIONS; STICK SITE L.RADIAL
[2016-12-29] VITALS (42 sets, daily range): BP systolic 111–159; BP diastolic 56–84
[2016-12-29 03:56] LABS: HEMATOCRIT 26.6 % (37.0-47.0); MCH 28.8 pg (26.0-34.0); MCHC 33.3 g/dL (28.0-37.0); MCV 86.5 fL (80.0-100.0); PLATELET COUNT 183 thou/uL (150-400); RBC 3.07 mil/uL (4.20-5.00); RDW 15.5 % (10.5-14.5); WBC 11.4 thou/uL (4.0-11.0)
[2016-12-29 03:59] LABS: HEMOGLOBIN 8.8 gm/dL (12.0-15.0); MANUAL DIFF YES
[2016-12-29 04:15] LABS: ALBUMIN 2.3 g/dL (3.4-5.0); CALCIUM 8.4 mg/dL (8.5-10.1); POTASSIUM 3.7 mmol/L (3.5-5.1); TOTAL BILIRUBIN 0.4 mg/dL (<0.1-1.0); TOTAL PROTEIN 5.5 g/dL (6.4-8.2)
[2016-12-29 04:35] LABS: ABSOLUTE NEUTROPHILS 9.7 thou/uL (1.4-8.2); TOTAL CELL COUNT 100
[2016-12-30 04:40] VITALS: BP 157/72
[2016-12-30 05:20] LABS: HEMATOCRIT 31.3 % (37.0-47.0); HEMOGLOBIN 10.4 gm/dL (12.0-15.0); MCH 28.7 pg (26.0-34.0); MCHC 33.3 g/dL (28.0-37.0); MCV 86.1 fL (80.0-100.0); RBC 3.63 mil/uL (4.20-5.00); RDW 15.7 % (10.5-14.5); WBC 11.3 thou/uL (4.0-11.0)
[2016-12-30 05:27] LABS: CALCIUM 8.3 mg/dL (8.5-10.1); CREATININE 0.7 mg/dL (0.6-1.0); POTASSIUM 3.2 mmol/L (3.5-5.1)
[2016-12-30 07:30] VITALS: BP 141/72
[2016-12-30 11:38] VITALS: BP 145/75
[2016-12-30 16:30] VITALS: BP 155/89
[2016-12-30 20:25] VITALS: BP 188/90
[2016-12-30 22:56] VITALS: BP 142/79
[2016-12-31] VITALS (7 sets, daily range): BP systolic 111–160; BP diastolic 53–95
[2016-12-31 03:13] LABS: HEMOGLOBIN 10.9 gm/dL (12.0-15.0); MCHC 34.1 g/dL (28.0-37.0); MCV 84.9 fL (80.0-100.0); RBC 3.77 mil/uL (4.20-5.00); RDW 15.8 % (10.5-14.5); WBC 11.9 thou/uL (4.0-11.0)
[2016-12-31 03:22] LABS: CALCIUM 8.2 mg/dL (8.5-10.1); CREATININE 0.7 mg/dL (0.6-1.0); POTASSIUM 3.8 mmol/L (3.5-5.1)
[2016-12-31 12:06] LABS: URINE BILIRUBIN 1+ (Negative); URINE BLOOD NEGATIVE (Negative); URINE COLOR YELLOW; URINE GLUCOSE-RANDOM* NEGATIVE (Negative); URINE KETONES 2+ (Negative); URINE LEUKOCYTES-REFLEX NEGATIVE (Negative); URINE PROTEIN (DIPSTICK) 1+ (Negative); URINE SPECIFIC GRAVITY >= 1.030 (1.003-1.035); URINE UROBILINOGEN 0.2 E.U./dl (0.2-1.0)
[2016-12-31 12:07] LABS: ICTOTEST (BILI CONFIRMATORY) Negative (Negative)
[2016-12-31 12:15] LABS: CASTS None Seen /LPF (None Seen); CRYSTALS None Seen /LPF (None Seen); SQUAMOUS 0-3 Few /LPF (0-3); URINE RBC 0-2 Rare /HPF (0-2); URINE WBC-REFLEX 0-5 Rare /HPF (0-5)
[2017-01-01 02:57] LABS: ABSOLUTE NEUTROPHILS 6.4 thou/uL (1.4-8.2); BASOPHILS 0.8 % (0.0-2.0); HEMATOCRIT 30.9 % (37.0-47.0); HEMOGLOBIN 10.4 gm/dL (12.0-15.0); LYMPHOCYTES 12.9 % (24.0-44.0); MCH 28.8 pg (26.0-34.0); MCHC 33.8 g/dL (28.0-37.0); MCV 85.3 fL (80.0-100.0); MONOCYTES 11.2 % (1.0-8.0); PLATELET COUNT 209 thou/uL (150-400); POLYS 72.1 % (36.0-66.0); RBC 3.62 mil/uL (4.20-5.00); RDW 15.4 % (10.5-14.5); WBC 8.9 thou/uL (4.0-11.0)
[2017-01-01 02:59] LABS: MANUAL DIFF NO
[2017-01-01 03:01] LABS: CALCIUM 8.5 mg/dL (8.5-10.1); CREATININE 0.8 mg/dL (0.6-1.0); POTASSIUM 3.9 mmol/L (3.5-5.1)
[2017-01-01 04:00] VITALS: BP 154/82
[2017-01-01 08:00] VITALS: BP 148/80
[2017-01-01 12:00] VITALS: BP 149/76
[2017-01-01 16:00] VITALS: BP 146/88
[2017-01-01 20:17] VITALS: BP 133/64
[2017-01-02 02:55] LABS: ABSOLUTE NEUTROPHILS 5.1 thou/uL (1.4-8.2); BASOPHILS 0.7 % (0.0-2.0); EOSINOPHILS 4.4 % (0.0-3.0); HEMATOCRIT 30.7 % (37.0-47.0); HEMOGLOBIN 10.3 gm/dL (12.0-15.0); LYMPHOCYTES 13.4 % (24.0-44.0); MCH 28.5 pg (26.0-34.0); MCHC 33.6 g/dL (28.0-37.0); MCV 84.8 fL (80.0-100.0); MONOCYTES 11.3 % (1.0-8.0); PLATELET COUNT 201 thou/uL (150-400); POLYS 70.2 % (36.0-66.0); RBC 3.62 mil/uL (4.20-5.00); RDW 15.2 % (10.5-14.5); WBC 7.2 thou/uL (4.0-11.0)
[2017-01-02 02:58] LABS: MANUAL DIFF NO
[2017-01-02 03:01] LABS: CALCIUM 8.6 mg/dL (8.5-10.1); CREATININE 0.7 mg/dL (0.6-1.0); POTASSIUM 3.7 mmol/L (3.5-5.1)
[2017-01-02 03:32] VITALS: BP 150/98
[2017-01-02 11:52] VITALS: BP 156/86
[2017-01-02 16:15] VITALS: BP 138/78
[2017-01-02 19:37] VITALS: BP 134/76
[2017-01-03 03:16] LABS: HEMATOCRIT 29.7 % (37.0-47.0); HEMOGLOBIN 10.1 gm/dL (12.0-15.0); MCH 28.9 pg (26.0-34.0); MCV 84.7 fL (80.0-100.0); RBC 3.5 mil/uL (4.20-5.00); RDW 15.5 % (10.5-14.5); WBC 9.9 thou/uL (4.0-11.0)
[2017-01-03 03:35] LABS: CALCIUM 8.6 mg/dL (8.5-10.1); CREATININE 0.8 mg/dL (0.6-1.0); POTASSIUM 3.7 mmol/L (3.5-5.1)
[2017-01-03 03:52] VITALS: BP 131/61
[2017-01-03 08:30] VITALS: BP 148/72
[2017-01-03] MEDS ORDERED: CEFDINIR300 MG PO (08:39)
[2017-01-03] MEDS ORDERED: METHIMAZOLE5 MG PO (08:39)
[2017-01-03 12:15] VITALS: BP 130/86
[2017-01-03 13:09] LABS: ALPHA TOCOPHEROL 8.5 mg/L (6.5-21.5)
[2017-01-03 15:26] VITALS: BP 114/79
[2017-01-03 19:27] VITALS: BP 130/71
[2017-01-04 03:32] VITALS: BP 123/81
[2017-01-04 07:12] VITALS: BP 146/83
== END 2017-01-04 12:04 | DRG 853 ==
LOC: 4E 01:15 → 4S 01:38 → ICU 12-28 09:56 → 2N 12-29 12:47
PROVIDERS: Family Medicine; Hospitalist; Internal Medicine Endocrinology, Diabetes & Metabolism; Nurse Practitioner Acute Care; Psychiatry & Neurology Neurology; Specialist; Surgery
PROC: 30233N1 Transfusion of Nonautologous Red Blood Cells into Peripheral Vein, Percutaneous Approach (ICD-10-PCS; 2016-12-26)
PROC: 0DT80ZZ Resection of Small Intestine, Open Approach (ICD-10-PCS; principal; 2016-12-27)
PROC: 0DN80ZZ Release Small Intestine, Open Approach (ICD-10-PCS; principal; 2016-12-27)
DX: A41.9 Sepsis, unspecified organism (principal); E43 Unspecified severe protein-calorie malnutrition; K85.90 Acute pancreatitis without necrosis or infection, unspecified; G92 Toxic encephalopathy; K56.60 Unspecified intestinal obstruction; N39.0 Urinary tract infection, site not specified; D64.9 Anemia, unspecified; I48.91 Unspecified atrial fibrillation; I11.9 Hypertensive heart disease without heart failure; E05.90 Thyrotoxicosis, unspecified without thyrotoxic crisis or storm; E04.1 Nontoxic single thyroid nodule; B96.89 Other specified bacterial agents as the cause of diseases classified elsewhere; E83.119 Hemochromatosis, unspecified; E03.9 Hypothyroidism, unspecified; I73.9 Peripheral vascular disease, unspecified; G35 Multiple sclerosis; Z87.81 Personal history of (healed) traumatic fracture; Z86.718 Personal history of other venous thrombosis and embolism; Z85.038 Personal history of other malignant neoplasm of large intestine; Z82.49 Family history of ischemic heart disease and other diseases of the circulatory system; Z68.20 Body mass index [BMI] 20.0-20.9, adult
CPT/HCPCS: 10078; 10081; 10102; 27001; 50010; 50093; 50101; 50249; 50386; 50455; 50953; 51412; 51435; 51708; 51712; 52265; 53314; 56527; 56530; 56771; 57092; 62110; 62900; 70005

== ENCOUNTER → 2017-02-28 | Outpatient (CLI) | payer OTHER ==
[~2017-02-28] VITALS: Ht 170.2 cm; Wt 59.0 kg
[~2017-02-28] MED LIST: CEFDINIR300 MG PO; CLARITIN10 MG PO; ELIQUIS5 MG PO; HYDROCHLOROTHIA25 M2 PO; HYDROCORTISONE30 G9 RECTAL; LOPRESSOR50 PO; MEGACE40 MG/ML PO; METHIMAZOLE10 MG PO; METHIMAZOLE5 MG PO; NORVASC5 MG PO; PROBIOTIC1 EAC1 PO; REMERON15 MG PO; SENNA-S TABLET1 EACH PO; ST. JOSEPH ASPI81 MG PO; TYLENOL325 MG PO
== END | disposition home or self-care (01) ==
LOC: GI 07:41
DX: K57.30 Diverticulosis of large intestine without perforation or abscess without bleeding (principal); K64.8 Other hemorrhoids; K63.89 Other specified diseases of intestine; I10 Essential (primary) hypertension; I48.91 Unspecified atrial fibrillation; E05.90 Thyrotoxicosis, unspecified without thyrotoxic crisis or storm; Z90.49 Acquired absence of other specified parts of digestive tract; Z98.0 Intestinal bypass and anastomosis status; Z98.890 Other specified postprocedural states; Z79.01 Long term (current) use of anticoagulants; Z79.82 Long term (current) use of aspirin; Z79.899 Other long term (current) drug therapy
CPT/HCPCS: 62110; 62900

== ENCOUNTER → 2019-08-21 | Outpatient (CLI) | payer OTHER | LOC: SJCVCIMAG 13:50 | DX: I08.8 Other rheumatic multiple valve diseases (principal); I48.21 Permanent atrial fibrillation; I10 Essential (primary) hypertension; E78.5 Hyperlipidemia, unspecified; R94.31 Abnormal electrocardiogram [ECG] [EKG]; E03.9 Hypothyroidism, unspecified; Z86.718 Personal history of other venous thrombosis and embolism; Z85.038 Personal history of other malignant neoplasm of large intestine ==

== ENCOUNTER → 2020-02-19 | Outpatient (CLI) | payer OTHER | LOC: SJCVC 12:58 | PROVIDERS: ATTEND Internal Medicine | DX: R94.31 Abnormal electrocardiogram [ECG] [EKG] (principal); I48.21 Permanent atrial fibrillation; E78.5 Hyperlipidemia, unspecified; I10 Essential (primary) hypertension ==

== ENCOUNTER → 2020-09-16 | Outpatient (CLI) | payer OTHER | LOC: SJCVC 14:36 | PROVIDERS: ATTEND Internal Medicine | DX: R94.31 Abnormal electrocardiogram [ECG] [EKG] (principal); I48.21 Permanent atrial fibrillation; E78.5 Hyperlipidemia, unspecified; I10 Essential (primary) hypertension; E03.9 Hypothyroidism, unspecified; Z98.890 Other specified postprocedural states; Z79.899 Other long term (current) drug therapy; Z86.718 Personal history of other venous thrombosis and embolism ==

== ENCOUNTER → 2021-04-09 | Outpatient (CLI) | payer OTHER | LOC: SJCVC 11:32 | PROVIDERS: ATTEND Internal Medicine | DX: R94.31 Abnormal electrocardiogram [ECG] [EKG] (principal); I48.21 Permanent atrial fibrillation; E78.5 Hyperlipidemia, unspecified; I10 Essential (primary) hypertension; E03.9 Hypothyroidism, unspecified; Z79.899 Other long term (current) drug therapy ==